=== PATIENT | female | born 1990 | race Caucasian/White ===

== ENCOUNTER 2022-02-06 08:39 | Day surgery (SDC) | payer OTHER, SELFPAY ==
[2022-01-31 13:37] VITALS: BMI 26.5
--- NOTE | 2022-02-05 10:49 | HO.ANESPROP2 ---
Documented by User: Allie Larry NP 02/05/22 10:49 HPI - Anesthesia Eval Consult details Narrative: 31yo F for Bilateral Eye Muscle lateral Rectus Recession/Resection, Eye Muscle Superior Rectus Recession PCP cleared [facility] Past Medical History Medical History Deviated nasal septum Surgical History Surgical History History of excision of pilonidal cyst Social History Social History Patient Tobacco Use Status: Current someday Tobacco user Use of substances other than those prescribed or required for medical reasons: No Are you DNR?: No Advance Directives: No Advance Directives Information Provided: Yes Recently lost weight without trying: No Meds Allergies Allergy/AdvReac Type Severity Reaction Status Date / Time No Known Allergies Allergy Verified 01/31/22 13:38 Home Medications Medication Instructions Recorded Confirmed Last Taken Type No Known Home Meds 01/31/22 01/31/22 Unknown History Exam Exam Date and Time: February 05, 2022 1049 Height,Weight and Vital Signs: Height 5 ft 3 in Weight 67.9 kg Assessment and Plan Assessment Anesthesia Assessment: Chart Reviewed Documented by User: Joanne Garcia MD 02/06/22 10:18 [facility] Past Medical History Medical History Deviated nasal septum Surgical History Surgical History History of excision of pilonidal cyst History of Problems with Anesthesia: No Social History Social History Patient Tobacco Use Status: Current someday Tobacco user Use of substances other than those prescribed or required for medical reasons: No Are you DNR?: No Advance Directives: No Advance Directives Information Provided: Yes Recently lost weight without trying: No Meds Allergies Allergy/AdvReac Type Severity Reaction Status Date / Time No Known Allergies Allergy Verified 01/31/22 13:38 Home Medications Medication Instructions Recorded Confirmed Last Taken Type No Known Home Meds 01/31/22 01/31/22 Unknown History Exam Airway Mallampati Class: II TM Dist: >3cm Neck ROM: Full Loose/Missing/Broken Teeth: No and Lower Heart: RRR Lungs: CTA Assessment and Plan Assessment Anesthesia Assessment: Anesthesia Plan Discussed Final Anesthetic Review History of Problems with Anesthesia: No NPO: Yes ASA Class: II Final Preanesthetic Review: Meds/Allgs Chart Reviewed, Consent Obtained/Reviewed and Anes Risks/Benef Reviewed Patient Risk: Low Procedure Risk: Low Anesthetic Plan Anesthetic Plan: GA Disposition: Standard PACU
[2022-02-06 09:17] VITALS: BMI 26.5
[2022-02-06 09:19] LABS: UPreg QC Valid YES; Urine Pregnancy NEGATIVE (NEGATIVE)
[2022-02-06 09:21] VITALS: BP 117/49; PULSE 68; RESP 19; TEMP 37.5; O2SAT 98
[2022-02-06] MEDS: Lactated Ringers 1,000 ML 100 ML IVCONT (10:17)
[2022-02-06 12:22] VITALS: BP 119/46; PULSE 105; RESP 20; TEMP 36.1; O2SAT 99
[2022-02-06 12:27] VITALS: BP 119/65; PULSE 63; RESP 18; O2SAT 98
[2022-02-06 12:32] VITALS: BP 125/63; PULSE 65; RESP 18; O2SAT 98
[2022-02-06 12:37] VITALS: BP 125/83; PULSE 71; RESP 18; TEMP 36.3; O2SAT 100
[2022-02-06] MEDS: Tetracaine HCl/PF 0.5% Oph Sol 4 ML DROPS 1 DROP EYE-BOTH (12:43)
[2022-02-06 12:52] VITALS: BP 124/82; PULSE 60; RESP 16; TEMP 36.6; O2SAT 98
--- NOTE | 2022-02-06 14:46 | HO.OPHTHAL ---
Ophthalmology Operative Note Date of Service: 02/06/22 Narrative: Diagnoses 1. Exotropia 2. Right hypertropia. Procedures 1. Bilateral lateral rectus recessions of 5 and 4 mm. 2. Recession of right superior rectus muscle [address] Yap. Anesthesia general. Complications none. The patient was brought to the operative room placed under general anesthesia. The patient's eyes were prepped and draped in the usual sterile ophthalmic fashion. A lid speculum was placed in the right eye and an incision made at bare sclera in the superior temporal fornix. The lateral rectus muscle was hooked and secured with a double-armed Vicryl suture. It was disinserted from the globe and reattached to a position 5 mm behind the original insertion. The superior rectus muscle was then hooked and secured with a double-armed Vicryl suture. It was disinserted the globe and then reattached to a position 5 mm behind the original insertion using a hang back technique. Conjunctiva was closed with interrupted Vicryl sutures. Lid speck was then moved to the left eye where an incision was made down to bare sclera in the inferotemporal fornix. The lateral rectus muscle was hooked and secured with a double-armed Vicryl suture. It was then disinserted from the globe and reattached to the to a position 4 mm behind the original insertion. Conjunctiva was closed with interrupted Vicryl sutures. Patient was then awoken from general anesthesia and discharged to postoperative recovery in good condition.
== END 2022-02-06 13:40 | disposition home or self-care (01) ==
PROVIDERS: Nurse Practitioner; PCP Nurse Practitioner Gerontology; Visit Provider Ophthalmology
PROC: (CPT 67311; principal; 2022-02-06 10:00)
PROC: (CPT 67311; 2022-02-06 10:00)
DX: H50.111 Monocular exotropia, right eye (principal); H50.21 Vertical strabismus, right eye; H53.009 Unspecified amblyopia, unspecified eye; J34.2 Deviated nasal septum; Q80.9 Congenital ichthyosis, unspecified
CPT/HCPCS: 67311; 67314; 81025; J1100; J1885; J2250; J2405